=== PATIENT | male | born 1985 | race Caucasian/White ===

== ENCOUNTER 2017-05-24 20:06 | Emergency (ER) | payer OTHER ==
[~2017-05-24] VITALS: Ht 165.1 cm; Wt 63.7 kg
[~2017-05-24 20:06] MED LIST: AUGMENTIN875 MG PO; BACTRIM,SEPT1 TABLET PO; CLEOCIN300 MG PO; DOXYCYCLINE HY100 MG PO; MOTRIN600 MG PO; NORCO 5/3251 TABLET PO; ULTRAM50 MG PO
[2017-05-24 20:12] VITALS: BP 141/92
[2017-05-24 20:45] LABS: HEMATOCRIT 52.8 % (38.0-50.0); HEMOGLOBIN 18.1 G/DL (12.5-16.6); MCHC 34.3 G/DL (30.0-36.0); MCV 96.4 FL (86-99); PLATELET COUNT 209 K/uL (156-360); RBC DIS.WIDTH-CV 13.6 % (11.8-14.6); RBC DIS.WIDTH-SD 48.5 % (39-53); RED BLOOD COUNT 5.48 M/uL (4.00-5.50); WHITE BLOOD COUNT 22.4 K/uL (4.1-10.2)
[2017-05-24 20:53] LABS: CHLORIDE 104 mEq/L (99-109); POTASSIUM 3.5 mEq/L (3.7-5.4); SODIUM 142 mEq/L (136-147)
[2017-05-24 20:55] LABS: GLUCOSE 115 mg/dL (70-99); TOTAL PROTEIN 8.1 g/dL (6.4-8.3)
[2017-05-24 20:57] LABS: TOTAL BILIRUBIN 0.4 mg/dL (0.0-1.0)
[2017-05-24 20:58] LABS: SERUM ETHYL ALCOHOL 262 mg/dL
[2017-05-24 20:59] LABS: ALKALINE PHOSPHATASE 83 IU/L (3-129); CREATININE 0.7 mg/dL (0.6-1.3); GFR ESTIMATE (CALCULATED) > 59 mL/min/ (58.99-99999)
[2017-05-24 21:00] LABS: UREA NITROGEN (BUN) 5 mg/dL (9-23)
[2017-05-24 21:01] LABS: AST (GOT) 41 IU/L (2-34)
[2017-05-24 21:02] LABS: ACETAMINOPHEN (TYLENOL) < 10 mcg/mL (10-30); ALT (GPT) 49 IU/L (3-49)
[2017-05-24] MEDS ORDERED: FLEXERIL10 MG PO (21:43)
== END 2017-05-24 22:16 | disposition home or self-care (01) ==
LOC: EME → EDBD 20:06 → EME 20:06 → TRA 20:06
PROVIDERS: Emergency Medicine Emergency Medical Services
DX: S09.90XA Unspecified injury of head, initial encounter (principal); S00.83XA Contusion of other part of head, initial encounter; S16.1XXA Strain of muscle, fascia and tendon at neck level, initial encounter; S60.212A Contusion of left wrist, initial encounter; M25.512 Pain in left shoulder; F10.129 Alcohol abuse with intoxication, unspecified; Y90.8 Blood alcohol level of 240 mg/100 ml or more; V47.6XXA Car passenger injured in collision with fixed or stationary object in traffic accident, initial encounter; Y92.410 Unspecified street and highway as the place of occurrence of the external cause; J45.909 Unspecified asthma, uncomplicated; F17.200 Nicotine dependence, unspecified, uncomplicated; Z87.442 Personal history of urinary calculi; Z88.5 Allergy status to narcotic agent
CPT/HCPCS: 71046; 72040; 72170; 73110; 80053; 81003; 85027; 99281; 99284; G0480